=== PATIENT | female | born 1970 | race Caucasian/White ===

== ENCOUNTER 2024-11-12 05:54 | Outpatient (CLI) | payer SELFPAY | END 2024-11-12 23:59 | disposition home or self-care (01) | LOC: MRI02 05:54 | PROVIDERS: ATTEND Chiropractor | DX: M50.13 Cervical disc disorder with radiculopathy, cervicothoracic region (principal); M51.16 Intervertebral disc disorders with radiculopathy, lumbar region; M47.22 Other spondylosis with radiculopathy, cervical region; M48.02 Spinal stenosis, cervical region; M47.26 Other spondylosis with radiculopathy, lumbar region; M48.061 Spinal stenosis, lumbar region without neurogenic claudication | CPT/HCPCS: 72141; 72148 ==